=== PATIENT | female | born 1995 | race Caucasian/White ===

== ENCOUNTER → 2025-07-16 11:02 | Outpatient (REF) | payer OTHER, SELFPAY | LOC: MRI 3T 11:02 | PROVIDERS: ATTENDING PHYSICIAN Podiatrist Foot & Ankle Surgery; FAMILY PHYSICIAN Family Medicine | DX: M84.375A Stress fracture, left foot, initial encounter for fracture (principal) | CPT/HCPCS: 73721 ==